=== PATIENT | male | born 1965 | race Caucasian/White ===

== ENCOUNTER → 2016-10-31 | Outpatient (CLI) | payer MEDICARE, OTHER ==
[2016-10-31 16:35] LABS: ALT 32 U/L (21-72); AST 29 U/L (17-59); Alkaline Phosphatase 91 U/L (38-126); Anion Gap 9 mmol/L; Blood Urea Nitrogen 11 mg/dL (9-20); Carbon Dioxide 26 mmol/L (22-30); Chloride 105 mmol/L (98-107); Glucose 89 mg/dL (74-99); Non-African American GFR(MDRD) >60 (>60 ml/min/1.73 sqM); Potassium 4.2 mmol/L (3.5-5.1); Sodium 140 mmol/L (137-145); Total Protein 7.5 g/dL (6.3-8.2)
[2016-10-31 16:36] LABS: CHCM 32.6; HCT 47.4 % (39.0-53.0); HDW 2.41; HGB 15.3 gm/dL (13.0-17.5); MCH 32.9 pg (25.0-35.0); MCHC 32.3 g/dL (31.0-37.0); MCV 101.9 fL (80.0-100.0); Macrocytosis Slight; Mean Platelet Volume 7.1; RBC 4.66 m/uL (4.30-5.90); RDW 13.3 % (11.5-15.5); WBC 13.7 k/uL (3.8-10.6)
--- NOTE | 2016-10-31 16:54 | MR ---
EXAMINATION TYPE: MR brain/cspine wo/w DATE OF EXAM: 10/31/2016 4:01 PM COMPARISON: NONE HISTORY: Memory loss, neck pain, BUE weakness, hx of falls, prior neck surgery May 2015. Reduced scan parameters as pt. had a very difficult time staying still CONTRAST: Patient received 15 mL intravenous MultiHance gadolinium contrast. Multiplanar and multispin-echo imaging of the brain was performed . Pre and post contrast enhanced i mages are obtained. The ventricles, basal cisterns and sulci overlying the cerebral convexities are mildly enlarged. The re is moderate sized area of remote insult left frontal lobe with encephalomalacia identified and gli osis. There is ex vacuo dilatation of the frontal horns. There is evidence of mild periventricular white matter ischemic demyelination. Remote deep white matter insults are also noted. No acute edema is seen on diffusion weighted imaging. There is no evidence for midline shift or mass effect. Acute intracranial hemorrhage or extra-axial collection is not evident. No enhancing lesions are seen. Mild mucoperiosteal thickening. Mastoid air cells well aerated. IMPRESSION: 1. Remote insult left frontal lobe with the encephalomalacia and gliosis. Associated ex vacuo dilatat ion of the frontal horns. 2. No acute intracranial process or hemorrhage seen. EXAMINATION TYPE: MR brain/cspine wo/w DATE OF EXAM: 10/31/2016 4:01 PM COMPARISON: 10/10/2014 HISTORY: Memory loss, neck pain, BUE weakness, hx of falls, prior neck surgery May 2015. Reduced scan parameters as pt. had a very difficult time staying still CONTRAST: The patient was injected with 15 mL intravenous MultiHance gadolinium contrast. Multiplanar MultiSpin echo imaging of the cervical spine was performed. C2-C3: Moderate to severe disc desiccation. Posterocentral disc bulge with associated hypertrophic ch anges resulting in moderate central stenosis. Early compressive myelopathy is difficult to exclude. T his is a new finding relative to the prior examination. Right foraminal encroachment identified. C3-C4: Interval postoperative change of anterior cervical discectomy and fusion. Anterior fixation pl ate is in place. Previously noted disc endplate complex is improved however there is persistent centr al stenosis with increased signal within the cervical spinal cord compatible with myelopathy. Degener ative change of the cervical apophyseal joints resulting in bilateral foraminal encroachment. C4-C5: Interval postoperative change of anterior cervical discectomy and fusion. Anterior fixation pl ate is in place. Previously noted disc endplate complex is improved however there is persistent centr al stenosis with increased signal within the cervical spinal cord compatible with myelopathy. Degener ative change of the cervical apophyseal joints resulting in bilateral foraminal encroachment. C5-C6: Interval postoperative change of anterior cervical discectomy and fusion. Anterior fixation pl ate is in place. Previously noted disc endplate complex is improved however there is persistent centr al stenosis with increased signal within the cervical spinal cord compatible with myelopathy. Degener ative change of the cervical apophyseal joints resulting in bilateral foraminal encroachment. C6-C7: Moderate disc desiccation with circumferential disc bulge greatest posteriorly. Effacement of the ventral thecal sac. Borderline central stenosis suggested. Bilateral foraminal encroachment. No d efinite compressive myelopathy at this level. C7-T1: Mild disc desiccation with posterior disc bulge. No evidence for central stenosis. Foramina ar e patent bilaterally. Ventral spondylosis seen. No cervical spine fracture. There is normal alignment. Cervical spinal cord is of normal signal. C raniovertebral junction relationships are within normal limits. No pathologic enhancement. No eviden ce for pathologic enhancement. IMPRESSION: 1. Despite interval surgical intervention there is moderate central stenosis extending from C2-3 thr ough C5-6 with changes of the compressive myelopathy. See above.
[2016-10-31 21:06] LABS: Hemoglobin A1C 5.4 % (4.2-6.1)
== END | disposition home or self-care (01) ==
LOC: RADMRIMAIN 14:39
PROVIDERS: ATTEND Psychiatry & Neurology Pain Medicine
DX: G93.89 Other specified disorders of brain (principal); M48.02 Spinal stenosis, cervical region; G95.20 Unspecified cord compression; Z87.820 Personal history of traumatic brain injury
CPT/HCPCS: 83519; 80053; 83036; 85027; 70553; 72156; 36415; A9577

== ENCOUNTER → 2016-11-24 | Outpatient (CLI) | payer MEDICARE, OTHER ==
--- NOTE | 2016-11-24 15:33 | US ---
EXAMINATION TYPE: US kidneys/renal and bladder DATE OF EXAM: 11/24/2016 3:23 PM COMPARISON: NONE CLINICAL HISTORY: N31.9 NEUROGENIC BLADDER, N39.0 UTI. EXAM MEASUREMENTS: Right Kidney: 9.8 x 5.6 x 4.7 cm Left Kidney: 10.1 x 5.1 x 4.9 cm Right Kidney: cystic area lower pole = 1.2 x 1.1 x 1.2cm Left Kidney: cystic area upper pole = 0.8cm Bladder: debris noted within, layer of echogenic material noted posteriorly, septation noted Bilateral Jets seen: yes There is no evidence for hydronephrosis at this point in time. No nephrolithiasis is seen. No saeed s are identified. Debris is seen within the urinary bladder of uncertain etiology. Bilateral ureteral jets are seen. IMPRESSION: 1. Bilateral renal cysts. 2. Debris within the urinary bladder.
== END | disposition home or self-care (01) ==
LOC: RADUSWWP 14:52
PROVIDERS: ATTEND Family Medicine
DX: N28.1 Cyst of kidney, acquired (principal); N32.89 Other specified disorders of bladder
CPT/HCPCS: 76770

== ENCOUNTER → 2016-12-26 | Outpatient (CLI) | payer MEDICARE, OTHER ==
--- NOTE | 2016-12-26 15:04 | XR ---
EXAMINATION TYPE: XR elbow complete LT DATE OF EXAM ORDERED: 12/26/2016 HISTORY: M25.522 L elbow pain. COMPARISON: Previous study dated 11/22/2012. FINDINGS: No fracture or dislocation is seen. No joint effusion is seen. There is a small olecranon spur. There is swelling in the region of the olecranon which has worsened from previous. IMPRESSION: 1. NO ACUTE OSSEOUS LESION. 2. OLECRANON SPUR. 3. I CANNOT EXCLUDE SOME DEGREE OF OLECRANON BURSITIS.
--- NOTE | 2016-12-26 15:44 | XR ---
EXAMINATION TYPE: XR finger RT DATE OF EXAM ORDERED: 12/26/2016 HISTORY: M79.646 rt thumb pain. COMPARISON: None. FINDINGS: No fracture, dislocation or other acute osseous lesion is seen. IMPRESSION: NORMAL RIGHT THUMB.
== END | disposition home or self-care (01) ==
LOC: RADXRMAIN 14:24
PROVIDERS: ATTEND Psychiatry & Neurology Neurology
DX: M77.8 Other enthesopathies, not elsewhere classified (principal)

== ENCOUNTER 2018-12-15 07:54 | Inpatient (IN) | payer MEDICARE, OTHER ==
--- NOTE | 2018-12-15 08:05 | ED ---
General Adult HPI - General Chief complaint: Seizure Stated complaint: Seizure, MITZY Time Seen by Provider: 12/15/18 08:00 Source: EMS Mode of arrival: EMS Limitations: no limitations - History of Present Illness Initial comments: Dictation was produced using [email or web address] dictation software. please excuse any grammatical, word or spelling errors. 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 History of Present Illness: Patient is a 53-year-old male. He has history of encephalopathy secondary to speak traumatic brain injury suffered several years ago. She usually has seizures after traumatic head injury. Patient on him limits with a walker. He does have residual upper extremity weakness and bilateral lower extremity weakness. He is usually able to ambulate with a walker and some assistance. Patient has a baseline slurred speech. Sisters at bedside. Patient resides with sister. This morning he was noted to have fallen the bathroom. Sister with to go check on him and found that patient is having generalized tonic-clonic seizures. Patient has had this in the past after fall. Patient is not taking any seizure medications. Patient has no complaints at this time. Patient is brought in by EMS. He was noted to be seizing upon initial evaluation however stopped. He was noted to be slightly postictal. There is concern that patient may have aspirated during his seizure episode due to mild hypoxia upon initial evaluation. EMS reported that he appeared to be post ictal however improved dramatically while en route to the emergency department. The ROS documented in this emergency department record has been reviewed and confirmed by me. Those systems with pertinent positive or negative responses have been documented in the HPI. All other systems are other negative and/or noncontributory. PHYSICAL EXAM: General Impression: Alert and oriented x2, not in acute distress HEENT: Normocephalic atraumatic, extra-ocular movements intact, pupils equal and reactive to light bilaterally, mucous membranes moist. 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 Patient appears to be at baseline. Sisters at bedside and confirms this. Vital signs upon arrival shows respiratory rate of 28, worse vital signs within acceptable limits. Patient has no complaints at this time. Patient appears slightly lethargic however responsive and verbal. He has no complaints at this time. Patient has a history of seizures with head trauma. There is concern that patient suffered traumatic injury. Traumatic work was performed. CBC shows a leukocytosis of 17.1 likely secondary to stress. Coag panel unremarkable. Metabolic panel shows mild Acidosis likely secondary to lactic acidosis given seizure. Urinalysis is unremarkable. Computed tomography scan of the brain and C-spine shows no acute processes. Chest x-ray and pelvis x-ray is unremarkable. Patient given intravenous fluids. Patient tolerating by mouth and ambulatory at baseline. Patient feels normal at the moment. Patient with establish care with neurologist. Patient clear for discharge. Patient counseled on fall precautions. Return Prevacid discussed. Patient clear for discharge. EKG interpretation: Ventricular rate 91, sinus rhythm,. Interval 152, care is 90, QTC 464. No CA prolongation, no QTC prolongation, no ST or T-wave changes noted. EKG compared to 05/12/2016 showing no changes. Overall, this EKG is unremarkable - Related Data Home Medications Medication Instructions Recorded Confirmed HYDROcodone/APAP 10-325MG [[place] 1 tab PO QID 12/15/15 12/15/18 10-325] Mirtazapine [Remeron] 45 mg PO HS 12/15/15 12/15/18 ALPRAZolam [Xanax] 1 dose PO TID PRN 05/12/16 12/15/18 Vortioxetine Hydrobromide 20 mg PO DAILY 12/15/18 12/15/18 [Trintellix] Allergies Allergy/AdvReac Type Severity Reaction Status Date / Time No Known Allergies Allergy Verified 12/15/18 08:11 Review of Systems ROS Statement: Those systems with pertinent positive or pertinent negative responses have been documented in the HPI. ROS Other: All systems not noted in ROS Statement are negative. Past Medical History Past Medical History: Seizure Disorder Additional Past Medical History / Comment(s): CHI, left sided weakness History of Any Multi-Drug Resistant Organisms: None Reported Additional Past Surgical History / Comment(s): spleenectomy Past Psychological History: No Psychological Hx Reported Smoking Status: Current some day smoker Past Alcohol Use History: Occasional Past Drug Use History: Marijuana General Exam Limitations: no limitations Course Vital Signs 12/15/18 07:55 Pulse Rate 98 Respiratory 28 H Rate Blood Pressure 135/96 O2 Sat by Pulse 95 Oximetry Medical Decision Making - Lab Data Result diagrams: 12/15/18 08:00 12/15/18 08:00 Lab Results 12/15/18 12/15/18 12/15/18 Range/Units 08:00 08:00 08:00 WBC 17.1 H (3.8-10.6) k/uL RBC 4.93 (4.30-5.90) m/uL Hgb 15.6 (13.0-17.5) gm/dL Hct 49.3 (39.0-53.0) % MCV 100.0 (80.0-100.0) fL MCH 31.6 (25.0-35.0) pg MCHC 31.6 (31.0-37.0) g/dL RDW 13.0 (11.5-15.5) % Plt Count 456 H (150-450) k/uL Neutrophils % 79 % Lymphocytes % 13 % Monocytes % 5 % Eosinophils % 1 % Basophils % 0 % Neutrophils # 13.5 H (1.3-7.7) k/uL Lymphocytes # 2.2 (1.0-4.8) k/uL Monocytes # 0.8 (0-1.0) k/uL Eosinophils # 0.2 (0-0.7) k/uL Basophils # 0.1 (0-0.2) k/uL PT 10.6 (9.0-12.0) sec INR 1.0 (<1.2) Sodium 142 (137-145) mmol/L Potassium 4.1 (3.5-5.1) mmol/L Chloride 108 H (98-107) mmol/L Carbon Dioxide 15 L (22-30) mmol/L Anion Gap 19 mmol/L BUN 13 (9-20) mg/dL Creatinine 1.07 (0.66-1.25) mg/dL Est GFR (CKD-EPI)AfAm >90 (>60 ml/min/1.73 sqM) Est GFR (CKD-EPI)NonAf 80 (>60 ml/min/1.73 sqM) Glucose 187 H (74-99) mg/dL POC Glucose (mg/dL) (75-99) mg/dL POC Glu Bellman ID Calcium 10.4 H (8.4-10.2) mg/dL Magnesium 2.1 (1.6-2.3) mg/dL Creatine Kinase 161 (55-170) U/L Urine Color Urine Appearance (Clear) Urine pH (5.0-8.0) Ur Specific [place] (1.001-1.035) Urine Protein (Negative) Urine Glucose (UA) (Negative) Urine Ketones (Negative) Urine Blood (Negative) Urine Nitrite (Negative) Urine Bilirubin (Negative) Urine Urobilinogen (<2.0) mg/dL Ur Leukocyte Esterase (Negative) Urine RBC (0-5) /hpf Urine WBC (0-5) /hpf Urine WBC Clumps (None) /hpf Amorphous Sediment (None) /hpf Hyaline Casts (0-2) /lpf Urine Mucus (None) /hpf 12/15/18 12/15/18 Range/Units 08:00 08:33 WBC (3.8-10.6) k/uL RBC (4.30-5.90) m/uL Hgb (13.0-17.5) gm/dL Hct (39.0-53.0) % MCV (80.0-100.0) fL MCH (25.0-35.0) pg MCHC (31.0-37.0) g/dL RDW (11.5-15.5) % Plt Count (150-450) k/uL Neutrophils % % Lymphocytes % % Monocytes % % Eosinophils % % Basophils % % Neutrophils # (1.3-7.7) k/uL Lymphocytes # (1.0-4.8) k/uL Monocytes # (0-1.0) k/uL Eosinophils # (0-0.7) k/uL Basophils # (0-0.2) k/uL PT (9.0-12.0) sec INR (<1.2) Sodium (137-145) mmol/L Potassium (3.5-5.1) mmol/L Chloride (98-107) mmol/L Carbon Dioxide (22-30) mmol/L Anion Gap mmol/L BUN (9-20) mg/dL Creatinine (0.66-1.25) mg/dL Est GFR (CKD-EPI)AfAm (>60 ml/min/1.73 sqM) Est GFR (CKD-EPI)NonAf (>60 ml/min/1.73 sqM) Glucose (74-99) mg/dL POC Glucose (mg/dL) 177 H (75-99) mg/dL POC Glu Bellman ID Mahnaz Emery Calcium (8.4-10.2) mg/dL Magnesium (1.6-2.3) mg/dL Creatine Kinase (55-170) U/L Urine Color Light Yellow Urine Appearance Cloudy (Clear) Urine pH 7.0 (5.0-8.0) Ur Specific [place] 1.010 (1.001-1.035) Urine Protein Negative (Negative) Urine Glucose (UA) Negative (Negative) Urine Ketones Negative (Negative) Urine Blood Small H (Negative) Urine Nitrite Positive (Negative) Urine Bilirubin Negative (Negative) Urine Urobilinogen <2.0 (<2.0) mg/dL Ur Leukocyte Esterase Small H (Negative) Urine RBC 1 (0-5) /hpf Urine WBC 5 (0-5) /hpf Urine WBC Clumps Rare H (None) /hpf Amorphous Sediment Rare H (None) /hpf Hyaline Casts 1 (0-2) /lpf Urine Mucus Rare H (None) /hpf Disposition Clinical Impression: Seizure Disposition: HOME SELF-CARE Condition: Good Instructions (If sedation given, give patient instructions): Recurrent Seizures in Adults (ED) Is patient prescribed a controlled substance at d/c from ED?: No Referrals: Daniel Edmonds MD [Primary Care Provider] - 1-2 days Time of Disposition: 10:04
[2018-12-15 08:07] LABS: Glucose,Whole Blood 177 mg/dL (75-99)
[2018-12-15 08:24] LABS: Basophils # (A) 0.1 k/uL (0-0.2); Basophils % (A) 0 %; Eosinophils # (A) 0.2 k/uL (0-0.7); Eosinophils % (A) 1 %; HCT 49.3 % (39.0-53.0); HGB 15.6 gm/dL (13.0-17.5); Lymphocytes # (A) 2.2 k/uL (1.0-4.8); Lymphocytes % (A) 13 %; MCH 31.6 pg (25.0-35.0); MCHC 31.6 g/dL (31.0-37.0); Mean Platelet Volume 6.9; Monocytes # (A) 0.8 k/uL (0-1.0); Monocytes % (A) 5 %; Neutrophils # (A) 13.5 k/uL (1.3-7.7); Neutrophils % (A) 79 %; Platelet Count 456 k/uL (150-450); RBC 4.93 m/uL (4.30-5.90); WBC 17.1 k/uL (3.8-10.6)
--- NOTE | 2018-12-15 08:24 | XR ---
EXAMINATION TYPE: XR pelvis AP view DATE OF EXAM: 12/15/2018 CLINICAL HISTORY: pain TECHNIQUE: Single view the pelvis is submitted. FINDINGS: No evidence for fracture, dislocation or bony lesion. Joint spaces are well-preserved. S I joints appear symmetric. IMPRESSION: 1. No acute fracture or dislocation seen. ICD 10 NO FRACTURE, INITIAL EVALUATION
--- NOTE | 2018-12-15 08:25 | XR ---
EXAMINATION TYPE: XR chest 1V portable DATE OF EXAM: 12/15/2018 HISTORY: Shortness of breath. COMPARISON: 05/12/2016 TECHNIQUE: Single view of the chest is submitted. FINDINGS: Demonstrated are scattered senescent parenchymal change. Endotracheal and NG tubes have been removed . There is no evidence for focal infiltrate. The heart is stable. Hilar and mediastinal structures are within normal limits. Degenerative changes are seen of the dorsal spine. IMPRESSION: 1. Chronic changes without evidence for acute pulmonary disease.
[2018-12-15 08:28] LABS: Prothrombin Time 10.6 sec (9.0-12.0)
[2018-12-15 08:34] LABS: Anion Gap 19 mmol/L; Blood Urea Nitrogen 13 mg/dL (9-20); Calcium 10.4 mg/dL (8.4-10.2); Carbon Dioxide 15 mmol/L (22-30); Chloride 108 mmol/L (98-107); Creatine Kinase 161 U/L (55-170); Glucose 187 mg/dL (74-99); Magnesium 2.1 mg/dL (1.6-2.3); Potassium 4.1 mmol/L (3.5-5.1); Sodium 142 mmol/L (137-145)
--- NOTE | 2018-12-15 08:34 | CT ---
EXAMINATION TYPE: CT brain kendy godfrey con DATE OF EXAM: 12/15/2018 COMPARISON: 05/12/2017 HISTORY: Fall CT DLP: 1244.[address] of the brain was performed. The ventricles, basal cisterns and sulci overlying the cerebral convexities demonstrate mild enlargem ent. There is no evidence for intracranial hemorrhage or sulcal effacement. There is decreased attenuatio n about the periventricular white matter and deep white matter of both cerebral hemispheres, compatib le with chronic small vessel ischemia. No mass effects are seen. If symptoms persist consider MRI. Osseous calvarium is intact. IMPRESSION: 1. Age related atrophic and chronic small vessel ischemic change without acute intracranial process seen at this time. CT Cervical Spine: Unenhanced CT of the cervical spine was performed with bone and soft tissue window settings submitted . Coronal and sagittal reconstruction is obtained. There is normal alignment and prevertebral soft tissues. No evidence for acute cervical fracture . P ostoperative changes noted. Scattered degenerative disc disease and spondylosis. Biapical scarring. IMPRESSION: 1. No evidence for acute fracture or subluxation of the cervical spine.
[2018-12-15 08:56] LABS: Amorphous Sediment,Urine Rare /hpf; Appearance,Urine Cloudy (Clear); Bilirubin,Urine Negative (Negative); Blood,Urine Small (Negative); Color,Urine Light Yellow; Glucose,Urine (UA) Negative (Negative); Hyaline Casts,Urine 1 /lpf (0-2); Ketones,Urine Negative (Negative); Leukocyte Esterase,Urine Small (Negative); Mucus,Urine Rare /hpf; Nitrite,Urine Positive (Negative); Protein,Urine Negative (Negative); RBC,Urine 1 /hpf (0-5); Urobilinogen,Urine <2.0 mg/dL (<2.0); WBC,Urine 5 /hpf (0-5)
[2018-12-15] MEDS ORDERED: SODIUM CHLORIDE 0.9% 1,000 ML IV STA (09:31)
[2018-12-15] MEDS ORDERED: cefTRIAXone IN SWFI 1,000 MG/10 ML SYRINGE IVP STA (10:22)
[2018-12-15] MEDS ORDERED: NALOXONE 0.4 MG/ML 1 ML VIAL IV PRN (10:23)
[2018-12-15] MEDS ORDERED: ONDANSETRON 4 MG/2 ML VIAL IVP PRN (10:23)
[2018-12-15] MEDS ORDERED: LORazepam 2 MG/ML INJ IV STA (10:25)
[2018-12-15] MEDS ORDERED: levETIRAcetam IV 1,000 MG in SALINE 1 100ML.BAG IVPB STA (10:25)
[2018-12-15] MEDS ORDERED: LORazepam 2 MG/ML INJ IV PRN (10:26)
[2018-12-15] MEDS: SODIUM CHLORIDE 0.9% 1,000 ML IV SCH ×2 (10:32→19:01)
[2018-12-15] MEDS ORDERED: ALPRAZolam 1 MG TAB PO PRN (14:27)
--- NOTE | 2018-12-15 16:02 | HP ---
HISTORY AND PHYSICAL CHIEF COMPLAINT: Ccv[age]-old white male with encephalopathy due to severe traumatic brain 18 years ago presents with a fall and multiple seizures at home. He hit his head. He normally walks with a walker and a cane. He has very poor ambulation. At baseline he has slurred speech, right hemiparesis, but he was having tonic-clonic seizures at home, brought in by EMS. He was postictal in the ER and he is admitted to the hospital. He has a history of COPD, also, and chronic neuropathy and rotator cuff tendinitis and degenerative disc disease. Fourteen-point review of systems negative except for mentioned in HPI. Vital signs are stable. Afebrile. CARDIOVASCULAR: S1, S2. LUNGS: Wheeze x4. NEUROLOGIC: Right hemiparesis. He was giving appropriate answers on psych evaluation. He looks about his normal self at this point, answering questions kind of sluggishly, which is normal. GI: Soft, nontender. I do not see any hematomas on his occiput or his scalp. ASSESSMENT: 1. Recurrent seizures. 2. Mild acidosis. 3. Head trauma. PLAN: Get neurology consult. Admit the patient. Possibly start him on some seizure medications, adjusting. Follow up after Neurology sees him. MMODL / IJN: [id number] /
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
[2018-12-15] MEDS: HYDROcodone/APAP 10-325MG 1 EACH TAB PO SCH ×2 (18:16→21:05)
[2018-12-15] MEDS ORDERED: MIRTAZAPINE 45 MG TABLET PO SCH (21:00)
[2018-12-16 05:03] VITALS: PULSE 79
[2018-12-16] MEDS: SODIUM CHLORIDE 0.9% 1,000 ML IV SCH (06:03)
[2018-12-16] MEDS ORDERED: VORTIOXETINE HYDROBROMIDE 20 MG TABLET PO SCH (09:00)
[2018-12-16] MEDS: HYDROcodone/APAP 10-325MG 1 EACH TAB PO SCH ×2 (09:05→12:52)
[2018-12-16 11:06] VITALS: RESP 18
[2018-12-16 12:08] VITALS: BP 120/70; TEMP 97.8
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
--- NOTE | 2018-12-16 16:44 | P.DS ---
Providers Date of admission: 12/15/18 10:23 Expected date of discharge: 12/16/18 Attending physician: Daniel Edmonds Consults: 12/15/18 10:24 Consult Physician Routine Consulting Provider: Edwar Dooley Consult Reason/Comments: seizures Do you want consulting provider notified?: Yes Primary care physician: Daniel Edmonds [facility] Course: Final Diagnoses; -Recurrent seizures with. -Mild acidosis -Head trauma -History of closed head injury Hospital course: This a 53-year-old gentleman with encephalopathy secondary to severe traumatic brain injury 18 years ago presented to the ER with fall, hit his head, multiple tonic clonic seizures at home. Had recurrent seizures in the ER. CT head showed age-related atrophic and chronic small vessel ischemic changes without acute intracranial process. CT of the cervical spine showed no fracture or dislocation. EKG showed sinus rhythm with premature atrial complexes. Chest x-ray showed chronic changes without evidence of acute process. Blood test shows WBC 17.1 hemoglobin 15.6, platelets 456. PT/PTT normal. Electrolytes normal. CPK 161. UA showed small amount of leukocyte esterase rare WBCs. Patient's last hemoglobin A1c 5.4 on 10/31/2016.Evaluated by neurology, EEG completed.Patient's sister and [id number] declined seizure medication, they wish to pursue CBD Oil instead. Declining further O/P neuro f/u. Patient is being discharged home in stable condition with guarded prognosis. Seizure precautions. Exam: Card. Regular S1,S2. Pulmonary; bilateral bases diminished. NEUROLOGIC: Chronic right hemiparesis with baseline of slurred speech. GI: Soft, nontender, Positive BS The impression and plan of care has been dictated as directed. : I performed a history and examination of this patient, discussed the same with the dictator. I agree with the dictator's note ,documented as a scribe. Any additional findings or plans will be noted. Time taken: 35 minutes Patient Condition at Discharge: Stable Plan - Discharge Summary Discharge Rx Participant: No New Discharge Prescriptions: New Cefuroxime Axetil [Ceftin] 500 mg PO BID #10 tab Continue Mirtazapine [Remeron] 45 mg PO HS HYDROcodone/APAP 10-325MG [[place] 10-325] 1 tab PO QID ALPRAZolam [Xanax] 1 dose PO TID PRN PRN Reason: Anxiety Vortioxetine Hydrobromide [Trintellix] 20 mg PO DAILY Discharge Medication List HYDROcodone/APAP 10-325MG [[place] 10-325] 1 tab PO QID 12/15/15 [History] Mirtazapine [Remeron] 45 mg PO HS 12/15/15 [History] ALPRAZolam [Xanax] 1 dose PO TID PRN 05/12/16 [History] Vortioxetine Hydrobromide [Trintellix] 20 mg PO DAILY 12/15/18 [History] Cefuroxime Axetil [Ceftin] 500 mg PO BID #10 tab 12/16/18 [Rx] Follow up Appointment(s)/Referral(s): Daniel Edmonds MD [Primary Care Provider] - 12/23/18 1:00 pm () Patient Instructions/Handouts: Recurrent Seizures in Adults (ED) Activity/Diet/Wound Care/Special Instructions: Declining seizure treatment, seizure medications. Family wishes to pursue CBD oil instead Discharge Disposition: HOME SELF-CARE
== END 2018-12-16 13:08 | disposition home or self-care (01) | DRG 101 ==
LOC: EC 07:54 → 3SCARD 10:23
PROVIDERS: ADMIT Family Medicine; ATTEND Family Medicine
DX: G40.409 Other generalized epilepsy and epileptic syndromes, not intractable, without status epilepticus (principal); E87.2 Acidosis; G81.91 Hemiplegia, unspecified affecting right dominant side; S09.90XA Unspecified injury of head, initial encounter; G62.9 Polyneuropathy, unspecified; S06.9X0S Unspecified intracranial injury without loss of consciousness, sequela; D72.829 Elevated white blood cell count, unspecified; I49.1 Atrial premature depolarization; J44.9 Chronic obstructive pulmonary disease, unspecified; F17.200 Nicotine dependence, unspecified, uncomplicated; G89.29 Other chronic pain; R33.9 Retention of urine, unspecified; M54.5 Low back pain; R47.81 Slurred speech; R09.02 Hypoxemia; Z90.81 Acquired absence of spleen; Z87.440 Personal history of urinary (tract) infections; Z79.891 Long term (current) use of opiate analgesic; Z79.899 Other long term (current) drug therapy; Z80.0 Family history of malignant neoplasm of digestive organs; Z80.1 Family history of malignant neoplasm of trachea, bronchus and lung; Z80.52 Family history of malignant neoplasm of bladder; W19.XXXA Unspecified fall, initial encounter; Y92.9 Unspecified place or not applicable
CPT/HCPCS: 36415; 70450; 71045; 72125; 72170; 80048; 81001; 82550; 83735; 85025; 85610; 87086; 93005; 95816; 96361; 96374; 96375; 99285

== ENCOUNTER → 2021-09-10 | Outpatient (CLI) | payer MEDICARE, OTHER ==
--- NOTE | 2021-09-10 18:14 | US ---
EXAMINATION TYPE: US kidneys/renal and bladder DATE OF EXAM: 09/10/2021 COMPARISON: US 2017 CLINICAL HISTORY: 56-year-old male N31.9 NEUROGENIC BLADDER. TECHNIQUE: Multiple sonographic images of the kidneys and bladder are obtained. EXAM MEASUREMENTS: Right Kidney: 10.7 x 5.8 x 4.7 cm Left Kidney: 10.2 x 5.4 x 4.4 cm Right Kidney: Benign 2.3 x 2.1 x 2.3cm cystic area inferior pole. No hydronephrosis. Left Kidney: wnl without hydronephrosis. Bladder: Patulous appearing with slight bladder wall trabeculation and some internal floating debris. 5.4cm outpouching posterior bladder. Bilateral Jets seen: yes IMPRESSION: 1. Patulous and mildly thickened appearing bladder with a large focal outpouching/diverticulum from t he posterior aspect of the bladder measuring 5.4 cm. Some floating debris is also noted. Findings in keeping with patient's neurogenic bladder. 2. No hydronephrosis. A benign 2.3 cm cyst on the right.
== END | disposition home or self-care (01) ==
LOC: RADUSWWP 14:33
PROVIDERS: ATTEND Urology
DX: N32.3 Diverticulum of bladder (principal); N28.1 Cyst of kidney, acquired; N31.9 Neuromuscular dysfunction of bladder, unspecified; R35.1 Nocturia
CPT/HCPCS: 76770; 84153

== ENCOUNTER → 2022-08-07 | Outpatient (CLI) | payer MEDICARE, OTHER ==
[2022-08-07 14:49] LABS: Basophils # (A) 0.05 X 10*3/uL (0.00-0.10); Basophils % (A) 0.5 %; Eosinophils # (A) 0.12 X 10*3/uL (0.04-0.35); Eosinophils % (A) 1.2 %; HCT 45.3 % (39.6-50.0); HGB 14.7 g/dL (13.0-17.0); Immature Grans, Automated 0.3 %; Lymphocytes # (A) 3.08 X 10*3/uL (0.90-5.00); Lymphocytes % (A) 31.9 %; MCH 33.6 pg (27.0-32.0); MCHC 32.5 g/dL (32.0-37.0); MCV 103.4 fL (80.0-97.0); Mean Platelet Volume 11.1 fL (9.5-12.2); Monocytes # (A) 1.05 X 10*3/uL (0.20-1.00); Monocytes % (A) 10.9 %; NRBC Per 100 WBC 0 /100 WBCS (0.0-0.0); Neutrophils # (A) 5.33 X 10*3/uL (1.80-7.70); Neutrophils % (A) 55.2 %; Platelet Count 354 X 10*3/uL (140-440); RBC 4.38 X 10*6/uL (4.40-5.60); RDW 13.3 % (11.5-14.5); WBC 9.66 X 10*3/uL (4.50-10.00)
[2022-08-07 16:20] LABS: ALT 25 U/L (10-49); AST 22 U/L (14-35); African American GFR (CKD) 110.3 (60.0-200.0); Albumin 4.2 g/dL (3.8-4.9); Albumin/Globulin Ratio 1.83 (1.60-3.17); Alkaline Phosphatase 61 U/L (41-126); BUN/Creat Ratio 18.78 Ratio (12.00-20.00); Blood Urea Nitrogen 16.9 mg/dL (9.0-27.0); Calcium 10.1 mg/dL (8.7-10.3); Chloride 102 mmol/L (96-109); Chol/HDL Ratio 4.59 Ratio; Globulin 2.3 g/dL (1.6-3.3); Glucose 98 mg/dL (70-110); LDL Cholesterol,Calculated 120.9 mg/dL (0.0-131.0); Non-African American GFR(CKD) 95.1 (60.0-200.0); Potassium 4.4 mmol/L (3.5-5.5); Sodium 139 mmol/L (135-145); Total Protein 6.5 g/dL (6.2-8.2)
[2022-08-07 22:37] LABS: Valproic Acid (Depakene) 80.8 ug/mL (50.0-100.0)
== END | disposition home or self-care (01) ==
LOC: LABWHC1 08:20
PROVIDERS: ATTEND Internal Medicine
DX: Z12.5 Encounter for screening for malignant neoplasm of prostate (principal); Z11.59 Encounter for screening for other viral diseases; R56.9 Unspecified convulsions
CPT/HCPCS: 86803; 80164; 80061; 80053; 84443; 85025; 36415; G0103

== ENCOUNTER → 2023-01-09 | Outpatient (CLI) | payer MEDICARE, OTHER ==
[2023-01-09 15:58] LABS: Basophils % (A) 0 %; Eosinophils # (A) 0.1 k/uL (0-0.7); Eosinophils % (A) 2 %; HCT 47.2 % (39.0-53.0); HGB 15.1 gm/dL (13.0-17.5); Lymphocytes # (A) 2.9 k/uL (1.0-4.8); Lymphocytes % (A) 34 %; MCH 34.1 pg (25.0-35.0); MCHC 31.9 g/dL (31.0-37.0); MCV 106.6 fL (80.0-100.0); Macrocytosis Moderate; Mean Platelet Volume 9.1; Monocytes # (A) 0.8 k/uL (0-1.0); Monocytes % (A) 9 %; Neutrophils # (A) 4.4 k/uL (1.3-7.7); Neutrophils % (A) 53 %; Platelet Count 311 k/uL (150-450); RBC 4.43 m/uL (4.30-5.90); RDW 12.2 % (11.5-15.5); WBC 8.3 k/uL (3.8-10.6)
[2023-01-09 21:44] LABS: Centromere Antibody <0.2 AI; Centromere Antibody Interp Negative (Negative)
[2023-01-09 22:51] LABS: ALT 28 U/L (10-49); AST 27 U/L (14-35); Albumin 4.3 d/dL (3.8-4.9); Albumin/Globulin Ratio 1.79 Ratio (1.60-3.17); Alkaline Phosphatase 69 U/L (41-126); Blood Urea Nitrogen 18.6 mg/dL (9.0-27.0); Calcium 10.3 mg/dL (8.7-10.3); Carbon Dioxide 24.7 mmol/L (21.6-31.8); Chloride 100 mmol/L (96-109); Globulin 2.4 d/dL (1.6-3.3); Glucose 126 mg/dL (70-110); Potassium 4.4 mmol/L (3.5-5.5); Rheumatoid Factor, Qnt <15 IU/mL (0-15); Sodium 138 mmol/L (135-145); Total Bilirubin 0.4 mg/dL (0.3-1.2); Total Protein 6.7 d/dL (6.2-8.2)
[2023-01-09 23:12] LABS: Hepatitis A Antibody IgM Nonreactive; Hepatitis B Core IgM Nonreactive; Hepatitis B Surface Antigen Nonreactive; Hepatitis C IgG Antibody Nonreactive
[2023-01-10 00:53] LABS: HIV 2 AB Non-Reactive (Non-Reactive); HIV AB P24 Non-Reactive (Non-Reactive); HIV P24 AG Non-Reactive (Non-Reactive)
== END | disposition home or self-care (01) ==
LOC: LABWHC1 13:10
PROVIDERS: ATTEND Internal Medicine
DX: R63.4 Abnormal weight loss (principal)
CPT/HCPCS: 36415; 80053; 80074; 82533; 84153; 84165; 84443; 85025; 86038; 86431; 87390

== ENCOUNTER → 2023-01-09 | Outpatient (CLI) | payer MEDICARE, OTHER ==
--- NOTE | 2023-01-13 14:44 | US ---
EXAMINATION TYPE: US venous doppler duplex LE DATE OF EXAM: 01/09/2023 2:00 PM COMPARISON: NONE CLINICAL INDICATION: Male, 57 years old with history of R60.0; edema SIDE PERFORMED: Bilateral TECHNIQUE: The lower extremity deep venous system is examined utilizing real time linear array sonog sarahi with graded compression, doppler sonography and color-flow sonography. VESSELS IMAGED: Common Femoral Vein Deep Femoral Vein Greater Saphenous Vein * Femoral Vein Popliteal Vein Small Saphenous Vein * Proximal Calf Veins (* superficial vessels) Right Leg: Negative for DVT Left Leg: Negative for DVT Grayscale, color doppler, spectral doppler imaging performed of the deep veins of the lower extremiti es. There is normal flow, compressibility, vascular waveforms. There is streaky edema within the lower extremities. IMPRESSION: No evidence for deep vein to most of the bilateral lower extremity's. Bilateral lower extremity subcutaneous edema.
== END | disposition home or self-care (01) ==
LOC: RADUSWWP 13:26
PROVIDERS: ATTEND Internal Medicine
DX: R60.0 Localized edema (principal)
CPT/HCPCS: 93970

== ENCOUNTER → 2023-01-19 | Outpatient (CLI) | payer MEDICARE, OTHER ==
--- NOTE | 2023-01-19 08:13 | XR ---
EXAMINATION TYPE: XR chest 2V DATE OF EXAM: 01/19/2023 COMPARISON: 12/15/2018 INDICATION: Weight loss TECHNIQUE: Frontal and lateral views of the chest are obtained. FINDINGS: The heart size is normal. The pulmonary vasculature is normal. The lungs are clear. Reinflation flattening the diaphragms present compatible with COPD. IMPRESSION: 1. No acute pulmonary process. 2. COPD
== END | disposition home or self-care (01) ==
LOC: LABWHC1 07:13
PROVIDERS: ATTEND Internal Medicine
DX: J44.9 Chronic obstructive pulmonary disease, unspecified (principal); R63.4 Abnormal weight loss; R73.9 Hyperglycemia, unspecified
CPT/HCPCS: 71046

== ENCOUNTER → 2023-01-21 | Outpatient (CLI) | payer MEDICARE, OTHER ==
--- NOTE | 2023-01-22 20:09 | CT ---
EXAMINATION TYPE: CT ChestAbdPelvis w con DATE OF EXAM: 01/21/2023 INDICATION: Unexpected weight loss, 30lbs since June. Loose stool, family Hx of colon CA. COMPARISON: None CT DLP: 1043.2 mGycm CONTRAST: Performed with Oral Contrast and with IV Contrast, patient injected with 100 ml mL of Isovue 300. TECHNIQUE: Axial images at 5 mm thick sections. Reconstructed images in the coronal plane. Delayed images through the kidneys. FINDINGS: CT CHEST: Portion of the thyroid visualized is normal. Minimal compressive atelectasis may be within the dependent left lung base. No suspicious masses are evident. No enlarged mediastinal or hilar adenopathy is evident. The ascending aorta diameter at the level of the main pulmonary artery is 3.6 cm. The main pulmonary artery diameter at the bifurcation is 2.[address] ABDOMEN: Liver: Normal Spleen: Spleen is very small or there may have been a prior splenectomy with a residual splenule. Pancreas: Normal Adrenal glands: The adrenal glands are normal. Gallbladder: Decompressed Kidneys: No masses are evident. No hydronephrosis is present. There is a 3.1 cm cyst at the inferio r medial pole right kidney. Delayed images were obtained through the kidneys, which remain unremarka ble. Aorta: Vascular calcification is within the aorta. Inferior vena cava: Filter is present within the inferior vena cava. The tip is at the level of the r enal veins. CT PELVIS: Loops of bowel within the abdomen and pelvis are normal. There are loops of bowel which are incom pletely distended or lack oral contrast limiting their evaluation. Appendix: Normal as visualized. Urinary bladder: Distended. Urinary bladder diverticula may be present. Genitourinary structures: Prostate appears normal with a few scattered small calcifications. Osseous structures: No suspicious lytic or sclerotic lesions. Degenerative disc changes are in the lo wer lumbar spine. IMPRESSIONS: 1. No acute abnormality to account for weight loss. 2. Right renal cyst. 3. Urinary bladder diverticula may be present within the distended urinary bladder. 4. Small spleen or residual splenule. Correlate with patient's surgical history
== END | disposition home or self-care (01) ==
LOC: EEVIPCON → RADCTMAIN 13:39
PROVIDERS: ATTEND Internal Medicine
DX: N28.1 Cyst of kidney, acquired (principal); N32.3 Diverticulum of bladder; R63.4 Abnormal weight loss
CPT/HCPCS: 71260; 74177; Q9967

== ENCOUNTER → 2023-01-21 | Outpatient (CLI) | payer MEDICARE, OTHER ==
[2023-01-21 16:08] LABS: Immunoglobulin M 39.4 mg/dL (40.0-280.0)
== END | disposition home or self-care (01) ==
LOC: LABWHC1 07:25
PROVIDERS: ATTEND Internal Medicine
DX: R63.4 Abnormal weight loss (principal); R73.9 Hyperglycemia, unspecified
CPT/HCPCS: 36415; 83036; 86334

== ENCOUNTER → 2023-02-16 | Outpatient (CLI) | payer MEDICARE, OTHER ==
--- NOTE | 2023-02-16 16:06 | CA ---
Transthoracic Echo Report Name: Elbert Infante Age: 57 Gender: M : 1965 Exam Date: 02/16/2023 14:48 Exam Location: [place] [facility] Ht (in): 74 Wt (lb): 153 Ordering Physician: Michel Cornelius MD Attending/Referring Phys: Ashli Pearson;[id number] Quality Improvement Coordinator Anh Dolan RDCS Procedure CPT: Indications: R60.0 Cardiac Hx: Technical Quality: Good Contrast 1: Total Dose (mL): Contrast 2: Total Dose (mL): MEASUREMENTS (Male / Female) Normal Values 2D ECHO LV Diastolic Diameter PLAX 4.8 cm 4.2 - 5.9 / 3.9 - 5.3 cm LV Systolic Diameter PLAX 2.7 cm IVS Diastolic Thickness 1.0 cm 0.6 - 1.0 / 0.6 - 0.9 cm LVPW Diastolic Thickness 1.1 cm 0.6 - 1.0 / 0.6 - 0.9 cm LV Relative Wall Thickness 0.4 RV Internal Dim ED PLAX 3.6 cm LA Systolic Diameter LX 3.6 cm 3.0 - 4.0 / 2.7 - 3.8 cm LV Diastolic Volume MOD BP 76.2 cm??? 67 - 155 / 56 - 104 cm??? LV Systolic Volume MOD BP 27.7 cm??? 22 - 58 / 19 - 49 cm??? LV Ejection Fraction MOD BP 63.6 % >= 55 % LV Cardiac Index MOD BP 1640.9 cm???/min???m??? LV Diastolic Volume MOD 4C 86.2 cm??? LV Systolic Volume MOD 4C 26.1 cm??? LV Ejection Fraction MOD 4C 69.7 % LV Cardiac Index MOD 4C 2035.5 cm???/min???m??? LV Diastolic Length 4C 9.3 cm LV Systolic Length 4C 4.7 cm LV Diastolic Volume MOD 2C 66.9 cm??? LV Systolic Volume MOD 2C 25.9 cm??? LV Ejection Fraction MOD 2C 61.2 % LV Cardiac Index MOD 2C 1385.5 cm???/min???m??? LV Diastolic Length 2C 9.4 cm LV Systolic Length 2C 5.3 cm LA Volume 54.1 cm??? 18 - 58 / 22 - 52 cm??? M-MODE Aortic Root Diameter MM 3.6 cm MV E Point Septal Separation 0.2 cm AV Cusp Separation MM 2.5 cm DOPPLER AV Peak Velocity 146.0 cm/s AV Peak Gradient 8.5 mmHg MV Area PHT 2.6 cm??? Mitral E Point Velocity 73.4 cm/s Mitral A Point Velocity 52.4 cm/s Mitral E to A Ratio 1.4 MV Deceleration Time 289.5 ms MV E' Velocity 9.8 cm/s Mitral E to MV E' Ratio 7.5 TR Peak Velocity 252.7 cm/s TR Peak Gradient 25.5 mmHg Right Ventricular Systolic Press 30.5 mmHg FINDINGS Left Ventricle Left ventricular ejection fraction is estimated at 60-65 %. Left ventricular cavity size normal. Left ventricular wall thickness normal. Right Ventricle Mild right ventricular dilatation. Right ventricular systolic pressure within normal limits. Right Atrium Normal right atrial size. Left Atrium Normal left atrial size. Mitral Valve Structurally normal mitral valve. Trace mitral regurgitation. Aortic Valve Trileaflet aortic valve. No aortic valve stenosis or regurgitation. Tricuspid Valve Structurally normal tricuspid valve. Mild tricuspid regurgitation. Pulmonic Valve Structurally normal pulmonic valve. Trace pulmonic regurgitation. Pericardium Normal pericardium. No pericardial effusion. Aorta Normal size aortic root and proximal ascending aorta. CONCLUSIONS Left ventricular ejection fraction 60-65% RVSP 30 Trace mitral regurgitation Mild tricuspid regurgitation Previewed by: Dr. Gabriel Miller DO (Electronically Signed) Final Date: 16 February 2023 16:04
== END | disposition home or self-care (01) ==
LOC: RADECHMAIN 14:32
PROVIDERS: ATTEND Internal Medicine
DX: I08.1 Rheumatic disorders of both mitral and tricuspid valves (principal); R60.0 Localized edema
CPT/HCPCS: 93306

== ENCOUNTER 2023-07-16 19:14 | Emergency (ER) | payer MEDICARE, OTHER ==
[2023-07-16 19:53] VITALS: RESP 18
[2023-07-16 20:24] LABS: Basophils % (A) 0 %; Eosinophils % (A) 1 %; HCT 29.8 % (39.0-53.0); HGB 9.9 gm/dL (13.0-17.5); Lymphocytes # (A) 1.1 k/uL (1.0-4.8); Lymphocytes % (A) 19 %; MCH 35.1 pg (25.0-35.0); MCHC 33.2 g/dL (31.0-37.0); MCV 105.8 fL (80.0-100.0); Macrocytosis Slight; Mean Platelet Volume 8.5; Monocytes % (A) 17 %; Neutrophils # (A) 3.4 k/uL (1.3-7.7); Neutrophils % (A) 60 %; Platelet Count 209 k/uL (150-450); RBC 2.82 m/uL (4.30-5.90); RDW 12.6 % (11.5-15.5); WBC 5.6 k/uL (3.8-10.6)
[2023-07-16 20:34] LABS: ALT 28 U/L (4-49); AST 41 U/L (17-59); African American GFR (CKD) >90 (>60 ml/min/1.73 sqM); Albumin 2.6 g/dL (3.5-5.0); Alkaline Phosphatase 45 U/L (38-126); Anion Gap 7 mmol/L; Blood Urea Nitrogen 22 mg/dL (9-20); Calcium 7.7 mg/dL (8.4-10.2); Carbon Dioxide 23 mmol/L (22-30); Chloride 106 mmol/L (98-107); Glucose 80 mg/dL (74-99); Non-African American GFR(CKD) >90 (>60 ml/min/1.73 sqM); Potassium 3.3 mmol/L (3.5-5.1); Sodium 136 mmol/L (137-145); Total Bilirubin 0.3 mg/dL (0.2-1.3); Total Protein 5.1 g/dL (6.3-8.2)
[2023-07-16 21:16] LABS: Appearance,Urine Slightly Cloudy (Clear); Bilirubin,Urine Negative (Negative); Blood,Urine Negative (Negative); Color,Urine Light Yellow; Glucose,Urine (UA) Negative (Negative); Ketones,Urine 1+ (Negative); Protein,Urine Negative (Negative); Specific Gravity,Urine 1.021 (1.001-1.035)
[2023-07-16 21:17] LABS: Leukocyte Esterase,Urine Negative (Negative); Nitrite,Urine Negative (Negative); Urobilinogen,Urine <2.0 mg/dL (<2.0)
--- NOTE | 2023-07-16 21:40 | CT ---
EXAMINATION TYPE: CT brain wo con DATE OF EXAM: 07/16/2023 COMPARISON: 12/15/2018 HISTORY: 58-year-old male with falling injury, seizure TECHNIQUE: Examination was done in axial plane without intravenous contrast. Coronal and sagittal r econstructions performed. CT DLP: 1150.4 mGycm Automated exposure control for dose reduction was used. FINDINGS: Old encephalomalacia along the inferior left frontal lobe. Mild ventricular prominence is unchanged s uggesting central cerebral atrophy. Otherwise, no evidence for acute intracranial hemorrhage, acute ischemic change, mass, mass effect, m idline shift, or extra axial fluid collection. No hydrocephalus. No effacement of cerebral sulci or b ada subarachnoid cisterns. Fischer-white matter differentiation is maintained. Age-indeterminate left nasal bone fracture. Suspected chronic given the lack of overlying soft tissue swelling. Moderate to severe mucosal thickening throughout the ethmoid air cells. Old blowout fractu re left medial orbital wall. Hypoplastic mastoid air cells. IMPRESSION: 1. Old encephalomalacia of the frontal lobe along the floor of the left anterior cranial fossa. Findi ngs suggest sequela of prior trauma or infarct. Unchanged from 2019. No acute intracranial abnormalit y seen. 2. Moderate to severe chronic ethmoid sinus disease. 3. Age-indeterminate left nasal bone fractures, suspected chronic given the lack of overlying soft ti ssue swelling.
[2023-07-16] MEDS ORDERED: DIVALPROEX 500 MG TABLET.DR PO STA (23:10)
--- NOTE | 2023-07-16 23:11 | ED ---
Seizure HPI - General Chief Complaint: Seizure Stated Complaint: Seizure Time Seen by Provider: 07/16/23 19:25 Source: EMS Mode of arrival: EMS Limitations: altered mental status - History of Present Illness Initial Comments: Patient's 58-year-old man with history of seizures following closed head injury. The patient did have a seizure prior to arrival here with ground-level fall. The patient was given Versed 5 mg and appears postictal on arrival. MD Complaint: seizure Onset/Timin -: hour(s) Description of Episode: loss of consciousness, tonic-clonic movement -: minutes(s) Witnessed: yes - by bystander Trauma: Yes Seizure History: known seizure disorder Possible Precipitating Event: head injury Associated Symptoms: denies other symptoms Treatments Prior to Arrival: benzodiazepines - Related Data Home Medications Medication Instructions Recorded Confirmed HYDROcodone/APAP 10-325MG [[place] 1 tab PO QID 12/15/15 12/15/18 10-325] Mirtazapine [Remeron] 45 mg PO HS 12/15/15 12/15/18 ALPRAZolam [Xanax] 1 dose PO TID PRN 05/12/16 12/15/18 Vortioxetine Hydrobromide 20 mg PO DAILY 12/15/18 12/15/18 [Trintellix] Previous Rx's Medication Instructions Recorded cefUROXime axetiL [Ceftin] 500 mg PO BID #10 tab 12/16/18 Allergies Allergy/AdvReac Type Severity Reaction Status Date / Time No Known Allergies Allergy Verified 07/16/23 19:36 Review of Systems ROS Statement: Those systems with pertinent positive or pertinent negative responses have been documented in the HPI. ROS Other: All systems not noted in ROS Statement are negative. Limitations: ROS unobtainable due to patients medical condition Past Medical History Past Medical History: Memory Impairment, Seizure Disorder Additional Past Medical History / Comment(s): 2001 Pt fell from tree stand and suffered a severe traumatic brain injury and has L arm mostly frozen and bilateral leg weakness with L leg worse and speech is very slurred-difficult to understand, seizures, falls, urinary retention-sister who is his caregiver and legal guardian straight caths pt 3-4 times a day, UTIs, chronic low back pain, sinus problems. History of Any Multi-Drug Resistant Organisms: None Reported Additional Past Surgical History / Comment(s): Spleenectomy, colonoscopy, low back surgery, cervical fusion, R middle finger surgery for trigger finger. Past Anesthesia/Blood Transfusion Reactions: No Reported Reaction Additional Past Anesthesia/Blood Transfusion Reaction / Comment(s): Unknown if pt has ever received blood transfusion-possible with spleenectomy. Past Psychological History: Anxiety, Depression Smoking Status: Former smoker Past Alcohol Use History: Rare Past Drug Use History: Marijuana - Past Family History Father Family Medical History: Cancer Additional Family Medical History / Comment(s): Father was exsposed to asbestos and had bladder cancer. Mother Family Medical History: Cancer Additional Family Medical History / Comment(s): Mother of lung cancer at the age of 48yrs. Brother(s) Family Medical History: Cancer Additional Family Medical History / Comment(s): One brother is a colon cancer survivor. General Exam Limitations: no limitations General appearance: in no apparent distress Eye exam: Present: normal appearance, PERRL. Absent: scleral icterus, conjunctival injection, periorbital swelling, periorbital tenderness ENT exam: Present: normal oropharynx Neck exam: Present: normal inspection, full ROM. Absent: tenderness Respiratory exam: Present: normal lung sounds bilaterally. Absent: respiratory distress, wheezes, rales, rhonchi, stridor Cardiovascular Exam: Present: regular rate, normal rhythm, normal heart sounds. Absent: systolic murmur, diastolic murmur, rubs, gallop GI/Abdominal exam: Present: soft. Absent: distended, tenderness, guarding, rebound, mass Extremities exam: Present: normal inspection, full ROM, normal capillary refill. Absent: tenderness Back exam: Present: normal inspection. Absent: vertebral tenderness Neurological exam: Present: altered. Absent: motor sensory deficit Skin exam: Present: warm, dry, intact, normal color. Absent: rash Course Vital Signs 07/16/23 07/16/23 07/16/23 19:30 19:37 23:32 Temperature 99.2 F 99.2 F 98.8 F Pulse Rate 72 72 78 Respiratory 18 18 18 Rate Blood Pressure 126/77 126/77 123/79 O2 Sat by Pulse 93 L 93 L 95 Oximetry Medical Decision Making - Medical Decision Making The patient had CT of the brain which I interpreted as negative for acute bony injury or intracranial hemorrhage. There is old encephalomalacia Was pt. sent in by a medical professional or institution (Dr., PA, SURGICAL GARMENT INSPECTOR, urgent care, hospital, or alf...) When possible be specific @ -History is given by patient's caregiver Did you speak to anyone other than the patient for history (EMS, parent, family, police, friend...)? What history was obtained from this source @ -[No] Did you review nursing and triage notes (agree or disagree)? Why? @ -[I reviewed and agree with nursing and triage notes] Were old charts reviewed (outside hosp., previous admission, EMS record, old EKG, old radiological studies, urgent care reports/EKG's, alf records)? Report findings @ -[No old charts were reviewed] Differential Diagnosis (chest pain, altered mental status, abdominal pain women, abdominal pain men, vaginal bleeding, weakness, fever, dyspnea, syncope, headache, dizziness, GI bleed, back pain, seizure, CVA, palpatations, mental health, musculoskeletal)? @ -[Differential Seizure: Recurrent seizure disorder, febrile seizure, alcohol withdrawal, stimulants, meningitis, encephalitis, intercranial hemorrhage, intracranial tumor, stroke, eclampsia, thyrotoxicosis, hypocalcemia, hyponatremia, hypernatremia, hypom agnesemia, psychogenic, this is not meant to be an all-inclusive list. EKG interpreted by me (3pts min.). @ -[As above] X-rays interpreted by me (1pt min.). @ -[None done] CT interpreted by me (1pt min.). @ -[I interpreted as above U/S interpreted by me (1pt. min.). @ -[None done] What testing was considered but not performed or refused? (CT, X-rays, U/S, labs)? Why? @ -[None] What meds were considered but not given or refused? Why? @ -[None] Did you discuss the management of the patient with other professionals (professionals i.e. FABRIZIO Chow, SURGICAL GARMENT INSPECTOR, lab, RT, psych nurse, health and social care teacher, flute polisher, teacher, branch officer, keycase assembler)? Give summary @ -[No] Was smoking cessation discussed for >3mins.? @ -[No] Was critical care preformed (if so, how long)? @ -[No] Were there social determinants of health that impacted care today? How? (H omelessness, low income, unemployed, alcoholism, drug addiction, transportation, low edu. Level, literacy, decrease access to med. care, long-term, rehab)? @ -[No] Was there de-escalation of care discussed even if they declined (Discuss DNR or withdrawal of care, Hospice)? DNR status @ -[No] What co-morbidities impacted this encounter? (DM, HTN, Smoking, COPD, CAD, Cancer, CVA, ARF, Chemo, Hep., AIDS, mental health diagnosis, sleep apnea, morbid obesity)? @ -[None] Was patient admitted / discharged? Hospital course, mention meds given and route, prescriptions, significant lab abnormalities, going to OR and other pertinent info. @ -[Patient is 58-year-old man with underlying seizure disorder who is brought to have evaluation after he had a fall related to what appears to be breakthrough seizure. The patient evaluation does not indicate acute traumatic injury. He does. Be stable to have follow-up as she has returned to baseline. Discussed appropriate further care and return parameters Undiagnosed new problem with uncertain prognosis? @ -[No] Drug Therapy requiring intensive monitoring for toxicity (Heparin, Nitro, Insulin, Cardizem)? @ -[No] Were any procedures done? @ -[No] Diagnosis/symptom? @ -[Generalized seizure Fall with mild head injury Acute, or Chronic, or Acute on Chronic? @ -[Acute Uncomplicated (without systemic symptoms) or Complicated (systemic symptoms)? @ -[Uncomplicated Side effects of treatment? @ -[No] Exacerbation, Progression, or Severe Exacerbation? @ -[No] Poses a threat to life or bodily function? How? (Chest pain, USA, SD, pneumonia, PE, COPD, DKA, ARF, appy, cholecystitis, CVA, Diverticulitis, Homicidal, Suicidal, threat to staff... and all critical care pts) @ -[No] - Lab Data Result diagrams: 07/16/23 20:07 07/16/23 20:07 Lab Results 07/16/23 07/16/23 07/16/23 Range/Units 20:07 20:07 20:07 WBC 5.6 (3.8-10.6) k/uL RBC 2.82 L (4.30-5.90) m/uL Hgb 9.9 L (13.0-17.5) gm/dL Hct 29.8 L (39.0-53.0) % MCV 105.8 H (80.0-100.0) fL MCH 35.1 H (25.0-35.0) pg MCHC 33.2 (31.0-37.0) g/dL RDW 12.6 (11.5-15.5) % Plt Count 209 (150-450) k/uL MPV 8.5 Neutrophils % 60 % Lymphocytes % 19 % Monocytes % 17 % Eosinophils % 1 % Basophils % 0 % Neutrophils # 3.4 (1.3-7.7) k/uL Lymphocytes # 1.1 (1.0-4.8) k/uL Monocytes # 1.0 (0-1.0) k/uL Eosinophils # 0.0 (0-0.7) k/uL Basophils # 0.0 (0-0.2) k/uL Macrocytosis Slight Sodium 136 L (137-145) mmol/L Potassium 3.3 L (3.5-5.1) mmol/L Chloride 106 (98-107) mmol/L Carbon Dioxide 23 (22-30) mmol/L Anion Gap 7 mmol/L BUN 22 H (9-20) mg/dL Creatinine 0.65 L (0.66-1.25) mg/dL Est GFR (CKD-EPI)AfAm >90 (>60 ml/min/1.73 sqM) Est GFR (CKD-EPI)NonAf >90 (>60 ml/min/1.73 sqM) Glucose 80 (74-99) mg/dL Calcium 7.7 L (8.4-10.2) mg/dL Total Bilirubin 0.3 (0.2-1.3) mg/dL AST 41 (17-59) U/L ALT 28 (4-49) U/L Alkaline Phosphatase 45 (38-126) U/L Total Protein 5.1 L (6.3-8.2) g/dL Albumin 2.6 L (3.5-5.0) g/dL Urine Color Light Yellow Urine Appearance Slightly Cloudy (Clear) Urine pH 5.0 (5.0-8.0) Ur Specific [place] 1.021 (1.001-1.035) Urine Protein Negative (Negative) Urine Glucose (UA) Negative (Negative) Urine Ketones 1+ H (Negative) Urine Blood Negative (Negative) Urine Nitrite Negative (Negative) Urine Bilirubin Negative (Negative) Urine Urobilinogen <2.0 (<2.0) mg/dL Ur Leukocyte Esterase Negative (Negative) Valproic Acid ug/mL 07/16/23 Range/Units 20:07 WBC (3.8-10.6) k/uL RBC (4.30-5.90) m/uL Hgb (13.0-17.5) gm/dL Hct (39.0-53.0) % MCV (80.0-100.0) fL MCH (25.0-35.0) pg MCHC (31.0-37.0) g/dL RDW (11.5-15.5) % Plt Count (150-450) k/uL MPV Neutrophils % % Lymphocytes % % Monocytes % % Eosinophils % % Basophils % % Neutrophils # (1.3-7.7) k/uL Lymphocytes # (1.0-4.8) k/uL Monocytes # (0-1.0) k/uL Eosinophils # (0-0.7) k/uL Basophils # (0-0.2) k/uL Macrocytosis Sodium (137-145) mmol/L Potassium (3.5-5.1) mmol/L Chloride (98-107) mmol/L Carbon Dioxide (22-30) mmol/L Anion Gap mmol/L BUN (9-20) mg/dL Creatinine (0.66-1.25) mg/dL Est GFR (CKD-EPI)AfAm (>60 ml/min/1.73 sqM) Est GFR (CKD-EPI)NonAf (>60 ml/min/1.73 sqM) Glucose (74-99) mg/dL Calcium (8.4-10.2) mg/dL Total Bilirubin (0.2-1.3) mg/dL AST (17-59) U/L ALT (4-49) U/L Alkaline Phosphatase (38-126) U/L Total Protein (6.3-8.2) g/dL Albumin (3.5-5.0) g/dL Urine Color Urine Appearance (Clear) Urine pH (5.0-8.0) Ur Specific [place] (1.001-1.035) Urine Protein (Negative) Urine Glucose (UA) (Negative) Urine Ketones (Negative) Urine Blood (Negative) Urine Nitrite (Negative) Urine Bilirubin (Negative) Urine Urobilinogen (<2.0) mg/dL Ur Leukocyte Esterase (Negative) Valproic Acid 62.8 ug/mL Disposition Clinical Impression: Seizure Disposition: HOME SELF-CARE Condition: Good Instructions (If sedation given, give patient instructions): Recurrent Seizures in Adults (ED) Is patient prescribed a controlled substance at d/c from ED?: No Referrals: Michel Cornelius MD [Primary Care Provider] - 1-2 days
[2023-07-16 23:38] VITALS: BP 123/79; PULSE 78; TEMP 98.8
== END 2023-07-16 23:33 | disposition home or self-care (01) ==
LOC: EC 19:14
DX: S09.90XA Unspecified injury of head, initial encounter (principal); G40.409 Other generalized epilepsy and epileptic syndromes, not intractable, without status epilepticus; G93.89 Other specified disorders of brain; F32.A Depression, unspecified; F41.9 Anxiety disorder, unspecified; F12.90 Cannabis use, unspecified, uncomplicated; Z79.899 Other long term (current) drug therapy; Z87.891 Personal history of nicotine dependence; W18.30XA Fall on same level, unspecified, initial encounter
CPT/HCPCS: 36415; 70450; 80053; 80164; 81001; 85025; 99284

== ENCOUNTER → 2023-12-15 | Outpatient (CLI) | payer MEDICARE, OTHER ==
--- NOTE | 2023-12-16 14:31 | US ---
EXAMINATION TYPE: US thyroid st tissue head/neck DATE OF EXAM: 12/15/2023 COMPARISON: NONE CLINICAL INDICATION: Male, 58 years old with history of R22.1 LOCALIZED SWELLING, MASS AND LUMP, NECK ; Anterior approach cervical fusion 5-6 years ago; painless lump superior to scar x 3-4 months TECHNIQUE: FINDINGS: irregularity seen at patients AOC = 0.6 x 0.8 x 0.3 cm Some posterior shadowing is present suggesting this could be calcification. Recommend CT soft tissue neck for additional evaluation IMPRESSION: Shadowing irregularity at the palpable region. Additional workup with contrast CT soft t issue neck recommended.
== END | disposition home or self-care (01) ==
LOC: RADUSWWP 07:25
PROVIDERS: ATTEND Internal Medicine
DX: R22.1 Localized swelling, mass and lump, neck (principal); Z98.1 Arthrodesis status
CPT/HCPCS: 76536

== ENCOUNTER → 2024-01-19 | Outpatient (CLI) | payer MEDICARE, OTHER ==
--- NOTE | 2024-01-19 14:37 | CT ---
EXAMINATION TYPE: CT soft tissue neck wo/w con CT DLP: 656.4 mGycm, Automated exposure control for dose reduction was used. DATE OF EXAM: 01/19/2024 11:33 AM COMPARISON: Thyroid ultrasound 12/15/2023. CLINICAL INDICATION:Male, 58 years old with history of R22.1 NECK NODULE; PHH, neck nodule TECHNIQUE: Standard CT of the neck was performed before and after the uneventful administration of 10 0 cc of Isovue-300 intravenously. Axial sections with coronal and sagittal reformats were obtained. FINDINGS: Brain: Visualized portions are grossly unremarkable. Orbits: Unremarkable Sinuses: Likely 1.9 cm mucous retention cyst within the anterior right maxillary sinus. Mild mucosal thickening of the inferior left maxillary sinus. Mild mucosal thickening in the bilateral ethmoid sin uses. Suprahyoid Neck: The oropharynx, oral cavity, parapharyngeal and retropharyngeal spaces are clear and symmetric. The nasopharynx is unremarkable. Infrahyoid Neck: The larynx, hypopharynx, and supraglottic area are clear and symmetric. The thyroid cartilage is well calcified. Parotid Glands: Unremarkable. Submandibular Glands: Unremarkable. Musculoskeletal: No acute osseous pathology. Postsurgical changes from anterior cervical fusion C3-5 with disc fusion cages. Multilevel degenerative disc disease with prominent anterior osteophytosis. N o aggressive osseous lesion. Remote injury to the distal left clavicle with pseudojoint with the scap lauren. Remote depressed left nasal bone fracture. Remote left anterior and medial maxillary sinus wall fractures. Remote injury to the left first and second ribs anteriorly. Lymph nodes: No lymph nodes measure greater than 1 cm short axis identified.. Vascular structures: Mild atherosclerotic calcifications of the bilateral carotid bulbs with right gr eater than left. Thoracic Inlet/airway: Airway is patent. The lung apices are clear. Paraseptal emphysematous changes identified in the bilateral apices. Soft tissues/Thyroid: Thyroid appears unremarkable. Dermal soft tissue calcifications demonstrated. Other: Dense round focus identified within the proximal esophagus. Favored to represent an ingested p ill. IMPRESSION Prominent calcified thyroid cartilage appears to represent abnormality demonstrated on prior ultrasou nd. No abnormal enhancing lesions identified.
== END | disposition home or self-care (01) ==
LOC: RADCTMAIN 10:41
PROVIDERS: ATTEND Internal Medicine
DX: R22.1 Localized swelling, mass and lump, neck (principal)
CPT/HCPCS: 70492; Q9967

== ENCOUNTER → 2024-07-15 | Outpatient (CLI) | payer MEDICARE, OTHER ==
[2024-07-15 10:42] LABS: HCT 46.5 % (39.6-50.0); HGB 14.7 g/dL (13.0-17.0); MCHC 31.6 g/dL (32.0-37.0); MCV 107.6 FL (80.0-97.0); Mean Platelet Volume 10.7 FL (9.5-12.2); NRBC Per 100 WBC 0 X 10*3/uL (0.00-0.01); Platelet Count 308 X 10*3/uL (140-440); RBC 4.32 X 10*6/uL (4.40-5.60); RDW 13.2 % (11.5-14.5); WBC 8.29 X 10*3/uL (4.50-10.00)
[2024-07-15 11:01] LABS: ALT 27 U/L (10-49); AST 27 U/L (14-35); Albumin/Globulin Ratio 1.54 Ratio (1.60-3.17); Alkaline Phosphatase 79 U/L (41-126); BUN/Creat Ratio 31.14 Ratio (12.00-20.00); Blood Urea Nitrogen 21.8 mg/dL (9.0-27.0); Calcium 9.7 mg/dL (8.7-10.3); Carbon Dioxide 27.4 mmol/L (21.6-31.8); Chloride 103 mmol/L (96-109); Chol/HDL Ratio 3.75 Ratio; Globulin 2.6 g/dL (1.6-3.3); Glucose 93 mg/dL (70-110); LDL Cholesterol,Calculated 101.1 mg/dL (0.0-131.0); Magnesium 2.1 mg/dL (1.5-2.4); Potassium 4.6 mmol/L (3.5-5.5); Sodium 139 mmol/L (135-145); Total Bilirubin 0.4 mg/dL (0.3-1.2); Total Protein 6.6 g/dL (6.2-8.2); Valproic Acid (Depakene) 39.5 UG/ML (50.0-100.0)
[2024-07-15 12:20] LABS: Basophils # (A) 0.06 X 10*3/uL (0.00-0.10); Basophils % (A) 0.7 %; Eosinophils # (A) 0.17 X 10*3/uL (0.04-0.35); Eosinophils % (A) 2.1 %; Howell-Jolly Bodies 2+ (None Seen); Lymphocytes # (A) 2.44 X 10*3/uL (0.90-5.00); Lymphocytes % (A) 29.4 %; Macrocytosis (M) 2+ (None Seen); Monocytes # (A) 0.96 X 10*3/uL (0.20-1.00); Monocytes % (A) 11.6 %; Neutrophils # (A) 4.63 X 10*3/uL (1.80-7.70); Neutrophils % (A) 55.8 %
== END | disposition home or self-care (01) ==
LOC: LABWHC1 07:23
PROVIDERS: ATTEND Internal Medicine
DX: Z00.00 Encounter for general adult medical examination without abnormal findings (principal); Z12.5 Encounter for screening for malignant neoplasm of prostate; S06.9XAA Unspecified intracranial injury with loss of consciousness status unknown, initial encounter; X58.XXXA Exposure to other specified factors, initial encounter; G40.89 Other seizures; F32.A Depression, unspecified; R73.9 Hyperglycemia, unspecified
CPT/HCPCS: 80164; 80061; 80053; 84443; 83735; 85025; 83036; 36415; G0103